=== PATIENT | male | born 1930 | race Two or more races ===

== ENCOUNTER 2020-05-27 15:01 | Emergency (ER) | payer MEDICARE, MEDICAID ==
[~2020-05-27] VITALS: Ht 172.7 cm; Wt 86.2 kg
[2020-05-27] MEDS ORDERED: KEPPRA1000 MG ORAL (15:20)
[2020-05-27 15:30] VITALS: BP 135/84
--- NOTE | 2020-05-27 15:30 | NUR ---
ER note: daughter of report that pt was bite by his own dog last Saturday, whent to his primary doctor and he give him antibiotic but his hands still swollen and still have a lot of pain.
--- NOTE | 2020-05-27 15:39 | Emergency Room Report ---
History of Present Illness General Chief Complaint: Animal Bite Source: Patient, Family Member Present Illness HPI The patient was bitten by his dog and Saturday. Started abx Saturday. Augmentin. Hand was more swollen and has improved however there is still pain and drainage and erythema. Patient rates the pain as 10 and aching and pressure. He denies any numbness to his hands. He had fevers initially but not in the last few days. Last tetanus week ago Last sz 1 month ago On Keppra History of hypertension Patient denies exposure to Covid positive contacts. No sore throat, chest pain, palpitations, nausea, vomiting, diarrhea, dysuria, abdominal pain, shortness of breath, depression, anxiety, visual changes, dizziness, headache. Allergies: Coded Allergies: No Known Allergies (Unverified , 05/27/20) COVID-19 Screening Contact w/high risk pt: No Experienced COVID-19 symptoms?: No COVID-19 Testing performed [employer]: No Patient History Past Medical History: see triage record, HTN Social History: Denies: smoking Social History Narrative with daughter Reviewed Nursing Documentation: PMH: Agreed; PSxH: Agreed Nursing Documentation-PMH Past Medical History: No History, Except For Hx Seizures: Yes Review of Systems All Other Systems: negative except mentioned in HPI Physical Exam Vital Signs Date Time Temp Pulse Resp B/P (MAP) Pulse Ox O2 Delivery O2 Flow Rate FiO2 05/27/20 15:10 98.2 79 19 135/84 (101) 94 Room Air Sp02 EP Interpretation: reviewed, normal General Appearance: well appearing, no apparent distress, GCS 15 Head: normocephalic Eyes: bilateral eye normal inspection, bilateral eye PERRL, bilateral eye EOMI ENT: other - Wearing a mask Neck: supple Respiratory: lungs clear, normal breath sounds Cardiovascular #1: regular rate, rhythm Cardiovascular #2: 2+ radial (R) Gastrointestinal: normal inspection, normal bowel sounds, non tender, no mass, non-distended Musculoskeletal: back normal, normal range of motion, gait/station normal Neurologic: alert, distal neuro normal, oriented x3, grossly normal Psychiatric: mood/affect normal Skin: warm/dry, other - Open lesion right forearm right wrist with some purulent drainage and surrounding erythema with significant swelling Medical Decision Making Diagnostic Impression: Primary Impression: Cellulitis Qualified Codes: L03.113 - Cellulitis of right upper limb Additional Impression: Dog bite Qualified Codes: W54.0XXA - Bitten by dog, initial encounter ER Course Patient presents with a dog bite that is been on antibiotics for 4 days. The wound is been improving however there is still is swelling and drainage. Based on exam at this time IV antibiotics are indicated. In addition the patient will be given a dose of pain medication. EKG chest x-ray and labs including blood cultures performed. A dose of vancomycin and Unasyn will be given IV. EKG normal sinus rhythm rate 63 normal EKG. Chest x-ray poor inspiration no infiltrates. Right forearm with prior wrist fracture no gas. Elevated C- reactive protein. White count normal. CMP normal. Discussion with Dr. James. Discussion with Dr. Hanson. Discussion with Dr. Conway. Improved and stable for transfer. Laboratory Tests Test 05/27/20 15:44 05/27/20 16:18 White Blood Count 8.1 K/UL (4.8-10.8) Red Blood Count 4.25 M/UL (4.70-6.10) L Hemoglobin 14.2 G/DL (14.2-18.0) Hematocrit 42.1 % (42.0-52.0) Mean Corpuscular Volume 99 FL (80-99) Mean Corpuscular Hemoglobin 33.4 PG (27.0-31.0) H Mean Corpuscular Hemoglobin Concent 33.7 G/DL (32.0-36.0) Red Cell Distribution Width 11.2 % (11.6-14.8) L Platelet Count 218 K/UL (150-450) Mean Platelet Volume 7.3 FL (6.5-10.1) Neutrophils (%) (Auto) 66.0 % (45.0-75.0) Lymphocytes (%) (Auto) 20.1 % (20.0-45.0) Monocytes (%) (Auto) 11.4 % (1.0-10.0) H Eosinophils (%) (Auto) 0.9 % (0.0-3.0) Basophils (%) (Auto) 1.6 % (0.0-2.0) Sodium Level 143 MMOL/L (136-145) Potassium Level 4.1 MMOL/L (3.5-5.1) Chloride Level 106 MMOL/L (98-107) Carbon Dioxide Level 24 MMOL/L (21-32) Anion Gap 13 mmol/L (5-15) Blood Urea Nitrogen 17 mg/dL (7-18) Creatinine 0.9 MG/DL (0.55-1.30) Estimated Glomerular Filtration Rate > 60 mL/min (>60) Glucose Level 114 MG/DL (74-106) H Calcium Level 9.0 MG/DL (8.5-10.1) Ferritin 331 NG/ML (8-388) Total Bilirubin 0.4 MG/DL (0.2-1.0) Aspartate Amino Transferase (AST) 40 U/L (15-37) H Alanine Aminotransferase (ALT) 36 U/L (12-78) Alkaline Phosphatase 84 U/L (46-116) Lactate Dehydrogenase 235 U/L (81-234) H Total Creatine Kinase 282 U/L (26-308) Troponin I 0.000 ng/mL (0.000-0.056) C-Reactive Protein, Quantitative 5.3 mg/dL (0.00-0.90) H Pro-B-Type Natriuretic Peptide 211 pg/mL (0-125) H Total Protein 7.3 G/DL (6.4-8.2) Albumin 3.4 G/DL (3.4-5.0) Globulin 3.9 g/dL Albumin/Globulin Ratio 0.9 (1.0-2.7) L Lipase 137 U/L (73-393) Prothrombin Time 11.1 SEC (9.30-11.50) Prothrombin Time INR 1.0 (0.9-1.1) Activated Partial Thromboplast Time 29 SEC (23-33) EKG Diagnostic Results Rate: normal Rhythm: NSR ST Segments: no acute changes Rhythm Strip Diag. Results EP Interpretation: yes Rhythm: NSR, no PVC's, no ectopy Chest X-Ray Diagnostic Results Chest X-Ray Diagnostic Results : Chest X-Ray Ordered: Yes # of Views/Limited/Complete: 1 View Indication: Other EP Interpretation: Yes Interpretation: no consolidation, no effusion, no pneumothorax Impression: No acute disease Electronically Signed by: Electronically signed by Desmond Brown MD Other X-Ray Diagnostic Results Other X-Ray Diagnostic Results : X-Ray ordered: R forearm # of Views/Limited Vs Complete: 3 View Indication: Other EP Interpretation: Yes Interpretation: no dislocation, no fractures, other - STS, no gas, calcified vessel Impression: Other Electronically Signed by: Electronically signed by Desmond Brown MD Last Vital Signs Date Time Temp Pulse Resp B/P (MAP) Pulse Ox O2 Delivery O2 Flow Rate FiO2 05/27/20 20:59 98.6 60 19 153/76 98 Room Air Status: improved Disposition: SHORT-TERM HOSP Condition: Serious Referrals: NON PHYSICIAN (PCP) Desmond Brown MD May 27, 2020 15:39
[2020-05-27] MEDS ORDERED: Ampicillin/Sulbactam Sod 3 GM in NS 110 ML IVPB ONE (15:45)
[2020-05-27] MEDS ORDERED: Morphine Sulfate 2mg/ml Inj(IV/IM USE ONLY) IVP ONE (15:45)
[2020-05-27] MEDS ORDERED: Bacitracin Oint UD TOPIC ONE (15:45)
[2020-05-27] MEDS ORDERED: Vancomycin 1 GM in NS 275 ML IVPB ONE (15:45)
[2020-05-27 16:40] LABS: ANION GAP 13 mmol/L (5-15); BLOOD UREA NITROGEN 17 mg/dL (7-18); CARBON DIOXIDE 24 MMOL/L (21-32); CHLORIDE 106 MMOL/L (98-107); CREATININE 0.9 MG/DL (0.55-1.30); POTASSIUM 4.1 MMOL/L (3.5-5.1); SODIUM 143 MMOL/L (136-145)
[2020-05-27 16:48] LABS: BASOPHILS % (AUTO) 1.6 % (0.0-2.0); EOSINOPHILS % (AUTO) 0.9 % (0.0-3.0); HEMATOCRIT 42.1 % (42.0-52.0); HEMOGLOBIN 14.2 G/DL (14.2-18.0); LYMPHOCYTES % (AUTO) 20.1 % (20.0-45.0); MEAN CORPUSCULAR VOLUME 99 FL (80-99); MONOCYTES % (AUTO) 11.4 % (1.0-10.0); PLATELET COUNT 218 K/UL (150-450); RED BLOOD COUNT 4.25 M/UL (4.70-6.10); RED CELL DISTRIBUTION WIDTH 11.2 % (11.6-14.8); WHITE BLOOD COUNT 8.1 K/UL (4.8-10.8)
[2020-05-27 16:55] LABS: ALANINE AMINOTRANSFERASE 36 U/L (12-78); ALBUMIN 3.4 G/DL (3.4-5.0); ALBUMIN/GLOBULIN RATIO 0.9 (1.0-2.7); ALKALINE PHOSPHATASE 84 U/L (46-116); ASPARTATE AMINO TRANSFERASE 40 U/L (15-37); BILIRUBIN,TOTAL 0.4 MG/DL (0.2-1.0); CREATINE KINASE 282 U/L (26-308); FERRITIN 331 NG/ML (8-388); LACTATE DEHYDROGENASE 235 U/L (81-234)
[2020-05-27] MEDS ORDERED: AUGMENTIN 875-1 EAC1 ORAL (17:11)
--- NOTE | 2020-05-27 17:48 | Diagnostic Imaging Report ---
EXAM: XR Right Forearm, 2 Views CLINICAL HISTORY: TRAUMA TECHNIQUE: Frontal and lateral views of the right forearm. COMPARISON: None FINDINGS: Bones/joints: Age indeterminate fracture deformity of the distal right radius, possibly acute. Further evaluation could be performed with CT or MRI. Osteopenia. No dislocation. Soft tissues: Soft tissue swelling. Vasculature: Vascular calcifications. IMPRESSION: Age indeterminate fracture deformity of the distal right radius, possibly acute. Further evaluation could be performed with CT or MRI.
[2020-05-27 18:23] VITALS: BP 144/64
--- NOTE | 2020-05-27 19:08 | Diagnostic Imaging Report ---
EXAM: XR Chest, 1 View CLINICAL HISTORY: PAIN TECHNIQUE: Frontal view of the chest. COMPARISON: None FINDINGS: Hardware: None. Lungs/pleura: Bibasilar opacities. No pleural effusion or pneumothorax. Heart/mediastinum: Mild enlargement of the cardiac silhouette. Soft tissues: Unremarkable. Bones: No acute fracture. Degenerative changes of the acromioclavicular joints and spine. Upper abdomen: Normal. IMPRESSION: Bibasilar opacities may represent atelectasis versus pneumonia.
[2020-05-27 20:01] LABS: APPEARANCE,URINE CLEAR; BILIRUBIN, URINE NEGATIVE (NEGATIVE); GLUCOSE, URINE (UA) NEGATIVE (NEGATIVE); KETONES,URINE 1+ (NEGATIVE); NITRITE,URINE NEGATIVE (NEGATIVE); PH,URINE 5 (4.5-8.0); PROTEIN,URINE 1+ (NEGATIVE); UROBILINOGEN,URINE 1 MG/DL (0.0-1.0)
[2020-05-27 20:12] LABS: COLOR,URINE YELLOW; LEUKOCYTE ESTERASE ,URINE TRACE (NEGATIVE)
--- NOTE | 2020-05-27 20:42 | NUR ---
ER DISCHARGE NOTE: Attempted to call report to L[facility] Martinez. [phone]. Nurse to return call, because they were busy. EMS arrived to [place] pt. Pt ambulated to [facility]. NURYS Jackson translated for staff. Pt going to room 214. Verbal report given to EMS. Pt AAO x4. IV in left hand is saline locked.
[2020-05-27 20:59] VITALS: BP 153/76
--- NOTE | 2020-05-27 21:27 | NUR ---
ED Nurse Note: Gave report to NURYS Zhao.
--- NOTE | 2020-05-28 12:28 | Cardiology Report ---
APPROVED REPORT EKG Measurement Heart [id number] HI 134P5 [id number] <Conclusion> Normal sinus rhythm Normal ECG
== END 2020-05-27 20:55 | disposition short-term general hospital (02) ==
LOC: EMR 15:30
DX: L03.113 Cellulitis of right upper limb (principal); S51.851D Open bite of right forearm, subsequent encounter; G40.909 Epilepsy, unspecified, not intractable, without status epilepticus; I10 Essential (primary) hypertension; W54.0XXD Bitten by dog, subsequent encounter; Z79.899 Other long term (current) drug therapy
CPT/HCPCS: 36415; 71045; 73090; 80053; 81003; 82550; 82728; 83615; 83690; 83880; 84484; 85025; 85610; 85730; 86140; 87040; 87181; 93005; 96365; 96367; 96372; 96375; 99285; J0295; J2270; J2405; J3370; J7050